=== PATIENT | female | born 1975 | race Caucasian/White ===

== ENCOUNTER 2016-10-11 16:06 | Emergency (ER) | payer OTHER ==
[2016-10-11 16:41] VITALS: BP 155/95
--- NOTE | 2016-10-11 17:22 | UC ---
Throat Pain/Nasal Cameron HPI - HPI Summary HPI Summary: complaint of cough and nasal congestion that started 3 days ago feels like he lymph nodes are swollen hearing some wheezing in her chest ears are slightly painful, intermittent headaches has felt chills for the last 2 days denies N/V/D has been taking throat spray and ibuprofen without relief - History of Current Complaint Chief Complaint: UCRespiratory Stated Complaint: COUGH-SOB Time Seen by Provider: 10/11/16 17:16 Hx Last Menstrual Period: tubal - Allergies/Home Medications Allergies/Adverse Reactions: Allergies Allergy/AdvReac Type Severity Reaction Status Date / Time No Known Allergies Allergy Verified 10/11/16 16:41 PMH/Surg Hx/FS Hx/Imm Hx Previously Healthy: Yes - Surgical History Surgical History: Yes Surgery Procedure, Year, and Place: 3 C-SECTIONS, APPENDECTOMY, CHOLECYSTECTOMY , LEFT BREAST TUMOR CYST REMOVED, LEFT OVARIAN TUMOR REMOVED - Family History Known Family History: Positive: Hypertension Negative: Cardiac Disease, Diabetes - Social History Occupation: Employed Full-time Lives: With Family Alcohol Use: Weekly Alcohol Amount: once a week Substance Use Type: None Smoking Status (MU): Light Every Day Tobacco Smoker Type: Cigarettes Amount Used/How Often: 1/2 ppd Length of Time of Smoking/Using Tobacco: 20 yrs Review of Systems Constitutional: Chills Skin: Negative Eyes: Negative ENT: Ear Ache, Nasal Discharge Respiratory: Cough Cardiovascular: Negative Gastrointestinal: Negative Genitourinary: Negative Motor: Negative Neurovascular: Negative Musculoskeletal: Negative Neurological: Negative Psychological: Negative All Other Systems Reviewed And Are Negative: Yes Physical Exam Triage Information Reviewed: Yes Appearance: No Pain Distress, Well-Nourished, Obese Vital Signs: Initial Vital Signs Temp 98.7 F 10/11/16 16:38 Pulse 82 10/11/16 16:38 Resp 22 10/11/16 16:38 BP 155/95 10/11/16 16:38 Pulse Ox 94 10/11/16 16:38 Vital Signs Reviewed: Yes Eyes: Positive: Conjunctiva Clear ENT: Positive: Pharyngeal erythema, Nasal congestion, Nasal drainage, TMs normal Neck: Positive: No Lymphadenopathy Respiratory: Positive: No respiratory distress, Rhonchi, Wheezing - rhonchi in BLL, wheezing throughout Cardiovascular: Positive: RRR, No Murmur Abdomen Description: Positive: Nontender, Soft, Distended Bowel Sounds: Positive: Present Musculoskeletal: Positive: No Edema Neurological: Positive: Alert Psychological Exam: Normal Skin Exam: Normal Re-Evaluation - Re-Evaluation First Eval Re-Evaluation Time: 05:50 Change: Improved Comment: lungs with less wheezing. still has rhonchi Throat Pain/Nasal Course/Dx - Course Course Of Treatment: exam completed. pt refuses chest xray. will treat for pneumonia with pcp followup. blood pressure is elevated -refer to PCP - Differential Dx/Diagnosis Differential Diagnosis/HQI/PQRI: URI, Other - bronchitis, pneumonia Provider Diagnoses: pneumonia Discharge - Discharge Plan Condition: Stable Disposition: HOME Prescriptions: Albuterol HFA INHALER* [Ventolin HFA Inhaler*] 2 puff INH Q4H PRN #1 mdi PRN Reason: Wheezing Azithromycin TAB* [Zithromax TAB (Z-WOOD)*] 0 mg PO .Z-WOOD INSTRUCTIONS #6 tab Spacer/Aerosol-Holding Chamber [Aerochamber Mv] 1 mis XX Q4HR #1 mis Patient Education Materials: Pneumonia (ED) Referrals: Porfirio Joy MD [Primary Care Provider] - Additional Instructions: Your blood pressure is elevated please contact your primary care provider for further evaluation Please take antibiotic as directed Use your albuterol inhaler every 4-6 hours when needed for wheezing, shortness of breath or uncontrolled coughing. Increase fluids and rest Take acetaminophen or ibuprofen for fever or pain Please review your discharge instructions. If your symptoms do not improve please call your primary care provider or return to urgent care.
[2016-10-11] MEDS ORDERED: Albuterol/Ipratropium NEB.SOL* Albuterol 2.5 MG/Ipratropium 0.5 MG 3 ML INH ONE (17:25)
== END 2016-10-11 17:58 | disposition home or self-care (01) ==
LOC: UCEAST 16:06
DX: J18.9 Pneumonia, unspecified organism (principal); F17.210 Nicotine dependence, cigarettes, uncomplicated
CPT/HCPCS: 94640; 99212; A9270-GY; G0463

== ENCOUNTER 2017-02-24 09:41 | Emergency (ER) | payer OTHER ==
[2017-02-24 10:01] VITALS: BP 157/99
--- NOTE | 2017-02-24 11:01 | UC ---
Respiratory Complaint HPI - HPI Summary HPI Summary: PATIENT PRESENTS TO WITH CC OF COUGH X 2 WEEKS, SOB, AND ORTHOPNEA X 1 WEEK. COUGH IS WITH SLIGHT PRODUCTION OF WHITE/GREEN PHLEGM. SHE ENDORSES POST-NASAL DRIP BUT DENIES DISCOMFORT OVER MAXILLARY AND FRONTAL SINUSES. DENIES EAR PAIN OR EYE PAIN. SHE STATES HER LYMPHNODES HAVE BEEN SWOLLEN. SYMPTOMS BEGAN 2 WEEKS AGO AND HAVE BEEN GETTING WORSE. SHE IS UNABLE TO PERFORM HER DAILY ACTIVITIES. DENIES HX OF ASTHMA, COPD OR OTHER ILLNESS. SHE IS SCHEDULED FOR A HYSTERECTOMY IN 2 MONTHS AND IS CURRENTLY ON LUPRON BUT DENIES OTHER MEDICATIONS. SYMPTOMS ARE WORSE IN RECUMBENT POSITION, BETTER IN ORTHOSTATIC POSITION. - History of Current Complaint Chief Complaint: UCRespiratory Stated Complaint: TROUBLE BREATHING,SOUGH Time Seen by Provider: 02/24/17 10:21 Hx Obtained From: Patient Hx Last Menstrual Period: tubal ?: No Onset/Duration: Gradual Onset Timing: Constant Severity Initially: Moderate Severity Currently: Moderate Pain Intensity: 4 Character: Cough: Productive Aggravating Factors: Deep Breaths, Recumbent Position Alleviating Factors: Upright Position Associated Signs And Symptoms: Positive: Dyspnea, URI, Nasal Congestion - Risk Factors Pulmonary Embolism Risk Factors: Estrogen Cardiac Risk Factors: Negative Pseudomonas Risk Factors: Negative Tuberculosis Risk Factors: Negative - Allergies/Home Medications Allergies/Adverse Reactions: Allergies Allergy/AdvReac Type Severity Reaction Status Date / Time No Known Allergies Allergy Verified 01/08/17 10:22 Home Medications: Home Medications Ascorbic Acid [Vitamin C] 500 mg PO 02/24/17 [History] Ferrous Sulfate [Iron (Ferrous Sulfate)] 100 mg 02/24/17 [History] Leuprolide Acetate (Cpp) [Lupron Depot-Ped] 3.75 mg IM 02/24/17 [History] PMH/Surg Hx/FS Hx/Imm Hx Previously Healthy: Yes - Surgical History Surgical History: Yes Surgery Procedure, Year, and Place: 3 C-SECTIONS, APPENDECTOMY, CHOLECYSTECTOMY , LEFT BREAST TUMOR CYST REMOVED, LEFT OVARIAN TUMOR REMOVED - Family History Known Family History: Positive: Hypertension Negative: Cardiac Disease, Diabetes - Social History Alcohol Use: Weekly Alcohol Amount: once a week Substance Use Type: None Smoking Status (MU): Light Every Day Tobacco Smoker Type: Cigarettes Amount Used/How Often: 1/2 ppd Length of Time of Smoking/Using Tobacco: 20 yrs Review of Systems Constitutional: Negative Skin: Negative ENT: Nasal Discharge Respiratory: Shortness Of Breath, Cough Gastrointestinal: Negative Motor: Negative Musculoskeletal: Negative Neurological: Negative Psychological: Negative All Other Systems Reviewed And Are Negative: Yes Physical Exam Triage Information Reviewed: Yes Appearance: Well-Appearing, Well-Nourished Vital Signs: Initial Vital Signs Temp 98.8 F 02/24/17 09:56 Pulse 76 02/24/17 09:56 Resp 18 02/24/17 09:56 BP 157/99 02/24/17 09:56 Pulse Ox 99 02/24/17 09:56 Vital Signs Reviewed: Yes Eye Exam: Normal Eyes: Positive: Conjunctiva Clear ENT: Positive: Pharynx normal, Nasal congestion, Nasal drainage Dental Exam: Normal Neck exam: Normal Neck: Positive: Supple, Nontender, No Lymphadenopathy Respiratory: Positive: Chest non-tender, Lungs clear, Decreased breath sounds Cardiovascular Exam: Normal Cardiovascular: Positive: RRR Musculoskeletal Exam: Normal Musculoskeletal: Positive: Strength Intact, ROM Intact Neurological Exam: Normal Neurological: Positive: Alert, Muscle Tone Normal Psychological Exam: Normal Psychological: Positive: Normal Response To Family Skin Exam: Normal UC Diagnostic Evaluation - Laboratory O2 Sat by Pulse Oximetry: 99 Respiratory Course/Dx - Course Course Of Treatment: PATIENT SENT TO XRAY. X RAY NEGATIVE. GIVEN ALBUTEROL INHALER AND 5 DAY COURSE OF PREDNISONE. ENCOURAGED TO USE ROBITUSSIN WITH CODEINE ONLY AT NIGHT FOR COUGH AND RETURN IF SYMPTOMS BECOME WORSE. SHE AGREES TO FOLLOW UP WITH PCP THIS WEEK. - Differential Dx/Diagnosis Differential Diagnosis/HQI/PQRI: Asthma, Bronchitis, Lower Resp Infection Provider Diagnoses: COUGH WITH SHORTNESS OF BREATH Discharge - Discharge Plan Condition: Stable Disposition: HOME Prescriptions: Albuterol HFA INHALER* [Ventolin HFA Inhaler*] 1 puff INH Q4H PRN #1 mdi PRN Reason: Cough guaiFENesin/CODIEN 100MG-10MG* [Robitussin AC 100Mg-10Mg*] 10 ml PO Q4H PRN # 100 udc MDD 10ml PRN Reason: Cough predniSONE TAB* [Deltasone TAB*] 50 mg PO DAILY #5 tab MDD 1 Patient Education Materials: Dyspnea (ED) Referrals: Porfirio Joy MD [Primary Care Provider] - Additional Instructions: Albuterol inhaler as needed for cough and shortness of breath Prednisone daily in the morning for 5 days Robitussin with codeine - 2 teaspoons at bedtime.
--- NOTE | 2017-02-24 12:10 | RAD ---
HISTORY: Cough COMPARISONS: None relevant VIEWS: 2: Frontal dual-energy and lateral views of the chest. FINDINGS: CARDIOMEDIASTINAL SILHOUETTE: The cardiomediastinal silhouette is normal. COLETTE: The colette are normal. PLEURA: The costophrenic angles are sharp. No pleural abnormalities are noted. LUNG PARENCHYMA: The lungs are clear. ABDOMEN: The upper abdomen is clear. There is no subphrenic gas. BONES AND SOFT TISSUES: Degenerative changes are noted along the spine. OTHER: None. IMPRESSION: NO ACTIVE CARDIOPULMONARY DISEASE.
== END 2017-02-24 12:12 | disposition home or self-care (01) ==
LOC: UCEAST 09:41
DX: R05 Cough (principal); R06.02 Shortness of breath; F17.210 Nicotine dependence, cigarettes, uncomplicated
CPT/HCPCS: 71020; 99212; G0463

== ENCOUNTER 2017-02-28 15:19 | Emergency (ER) | payer OTHER ==
[2017-02-28 15:36] VITALS: BP 131/91
--- NOTE | 2017-02-28 15:56 | UC ---
Respiratory Complaint HPI - HPI Summary HPI Summary: TWO WEEKS OF COUGH CONGESTION RUNNY NOSE, SEEN TWO DAYS AGO, PUT ON PREDNISONE AND ALBUITEROL INHALER. GIVEN COUGH SYRUP WITH CODEINE FOR COUGH. NO IMPROVEMENT. COUGH CONTINUES. - History of Current Complaint Chief Complaint: UCRespiratory Stated Complaint: RECHECK COUGH Time Seen by Provider: 02/28/17 15:38 Hx Obtained From: Patient Hx Last Menstrual Period: 3 MONTHS AGO, PT IS ON MEDICATION LUPRON Onset/Duration: Gradual Onset, Lasting Weeks, Still Present Timing: Intermittent Episodes Severity Initially: Moderate Severity Currently: Moderate Character: Cough: Nonproductive Associated Signs And Symptoms: Positive: URI, Nasal Congestion, Hoarseness, Sinus Discomfort. Negative: Fever, Chills, Calf Pain, Calf Swelling - Risk Factors Pulmonary Embolism Risk Factors: Negative Cardiac Risk Factors: Negative Pseudomonas Risk Factors: Negative Tuberculosis Risk Factors: Negative - Allergies/Home Medications Allergies/Adverse Reactions: Allergies Allergy/AdvReac Type Severity Reaction Status Date / Time No Known Allergies Allergy Verified 02/28/17 15:24 PMH/Surg Hx/FS Hx/Imm Hx Previously Healthy: Yes Respiratory History Of: Reports: Bronchitis - Surgical History Surgical History: Yes Surgery Procedure, Year, and Place: 3 C-SECTIONS, APPENDECTOMY, CHOLECYSTECTOMY , LEFT BREAST TUMOR CYST REMOVED, LEFT OVARIAN TUMOR REMOVED - Family History Known Family History: Positive: Hypertension Negative: Cardiac Disease, Diabetes - Social History Occupation: Employed Full-time Lives: With Family Alcohol Use: Weekly Alcohol Amount: once a week Substance Use Type: None Smoking Status (MU): Light Every Day Tobacco Smoker Type: Cigarettes Amount Used/How Often: 1/2 ppd Length of Time of Smoking/Using Tobacco: 20 yrs Review of Systems Constitutional: Negative Skin: Negative Eyes: Negative ENT: Nasal Discharge Respiratory: Cough Cardiovascular: Negative Gastrointestinal: Negative Genitourinary: Negative Motor: Negative Neurovascular: Negative Musculoskeletal: Negative Neurological: Negative Psychological: Negative All Other Systems Reviewed And Are Negative: Yes Physical Exam Triage Information Reviewed: Yes Appearance: Well-Appearing, No Pain Distress, Well-Nourished Vital Signs: Initial Vital Signs Temp 98.7 F 02/28/17 15:28 Pulse 89 02/28/17 15:28 Resp 24 02/28/17 15:28 BP 131/91 02/28/17 15:28 Pulse Ox 97 02/28/17 15:28 Vital Signs Reviewed: Yes Eye Exam: Normal ENT: Positive: Hearing grossly normal, Pharynx normal, Nasal congestion, TM bulging, TM dull Dental Exam: Normal Neck exam: Normal Neck: Positive: Supple, Nontender, No Lymphadenopathy Respiratory Exam: Other - COUGH Respiratory: Positive: Chest non-tender, Lungs clear, Normal breath sounds, No respiratory distress Cardiovascular Exam: Normal Cardiovascular: Positive: RRR, No Murmur, Pulses Normal Abdominal Exam: Normal Musculoskeletal Exam: Normal Musculoskeletal: Positive: Strength Intact, ROM Intact Neurological Exam: Normal Psychological Exam: Normal Skin Exam: Normal UC Diagnostic Evaluation - Laboratory O2 Sat by Pulse Oximetry: 97 Respiratory Course/Dx - Differential Dx/Diagnosis Differential Diagnosis/HQI/PQRI: Sinusitis Provider Diagnoses: SINUSITIS; BRONCHITIS Discharge - Discharge Plan Condition: Stable Disposition: HOME Prescriptions: Azithromycin TAB* [Zithromax TAB (Z-WOOD) 250 mg #6 tabs] 250 mg PO DAILY #6 tab Benzonatate CAP* [Tessalon 100 MG CAP*] 100 mg PO TID #15 cap Patient Education Materials: Sinusitis (ED), Acute Bronchitis (ED) Referrals: Porfirio Joy MD [Primary Care Provider] -
== END 2017-02-28 15:57 | disposition home or self-care (01) ==
LOC: UCCORT 15:19
DX: J32.9 Chronic sinusitis, unspecified (principal); J40 Bronchitis, not specified as acute or chronic; Z90.49 Acquired absence of other specified parts of digestive tract; F17.210 Nicotine dependence, cigarettes, uncomplicated
CPT/HCPCS: 99212; G0463

== ENCOUNTER 2017-04-19 06:21 | Observation (INO) | payer OTHER ==
[~2017-04-19 06:21] MED LIST: Buffered Lidocaine 0.9% SYRIN* 5 ML/SYR SYRINGE INTRADERM ONE; Famotidine TAB* 20 MG PO ONE; Ibuprofen TAB* 400 MG PO ONE; Metoclopramide TAB* 10 MG PO ONE; Scopolamine 1.5 mg* PATCH TRANSDERM ONE; Sodium Citrate/Citric Acid* 15 ML UDC PO ONE
[2017-04-19] MEDS ORDERED: ceFOXitin 2 GM IVPREMIX* 2 GM/50 ML BAG ONE (06:23)
[2017-04-19] MEDS ORDERED: Scopolamine 1.5 mg* PATCH ONE (06:23)
[2017-04-19] MEDS ORDERED: Buffered Lidocaine 0.9% SYRIN* 5 ML/SYR SYRINGE ONE (06:23)
[2017-04-19] MEDS ORDERED: Sodium Citrate/Citric Acid* 15 ML UDC ONE (06:23)
[2017-04-19] MEDS ORDERED: Famotidine TAB* 20 MG ONE (06:23)
[2017-04-19] MEDS ORDERED: Ibuprofen TAB* 400 MG ONE (06:23)
[2017-04-19] MEDS ORDERED: Metoclopramide TAB* 10 MG ONE ×2 (06:23→07:26)
[2017-04-19] MEDS ORDERED: Dexamethasone IV* 4 MG/ML 1 ML (4 MG) ONE (07:31)
[2017-04-19] MEDS ORDERED: Lidocaine 2% PF * 5 ML VIAL ONE (07:31)
[2017-04-19] MEDS ORDERED: Propofol* 10 MG/ML 20 ML BTL IV PUSH ONE (07:31)
[2017-04-19] MEDS ORDERED: Ondansetron INJ* 2 MG/ML VIAL ONE (07:31)
[2017-04-19] MEDS ORDERED: Bupivacaine 0.25% SDV* 30 ML ONE (07:38)
[2017-04-19 07:45] LABS: Comments Flag Yes; Hematocrit 41 % (35-47); Hemoglobin 13.1 g/dl (12.0-16.0); Mean Corpuscular HGB Conc 32 g/dl (31-36); Mean Corpuscular Hemoglobin 28 pg (27-31); Mean Corpuscular Volume 86 fL (80-97); Mean Platelet Volume 10 um3 (7.4-10.4); Red Blood Count 4.78 10^6/ul (4.0-5.4); Red Cell Distribution Width 15 % (10.5-15); White Blood Count 7.8 10^3/ul (3.5-10.8)
[2017-04-19] MEDS ORDERED: fentaNYL* 50 MCG/ML 2 ML VIAL (100 MCG VIAL) ONE (07:49)
[2017-04-19] MEDS ORDERED: Midazolam* 1 MG/ML 2 ML VIAL (2 MG) ONE (07:50)
[2017-04-19] MEDS ORDERED: Atracurium* 10 MG/ML 10 ML VIAL ONE (07:58)
[2017-04-19] MEDS ORDERED: fentaNYL* 50 MCG/ML 5 ML VIAL (250 MCG VIAL) ONE (08:49)
[2017-04-19] MEDS ORDERED: fentaNYL* 50 MCG/ML 2 ML VIAL (100 MCG VIAL) IV PRN (09:31)
[2017-04-19] MEDS ORDERED: DiMENhydriNATE IV* 50 MG/ML VIAL IV PUSH PRN (09:31)
[2017-04-19] MEDS ORDERED: HYDROmorphone* 1 MG/ML 1 ML SYR IV PRN (09:31)
[2017-04-19] MEDS ORDERED: Edrophonium Chloride* 10 MG/ML 15 ML VIAL ONE (10:50)
[2017-04-19] MEDS ORDERED: Atropine 1MG/ML INJ* 1 ML VIAL ONE (10:50)
[2017-04-19] MEDS ORDERED: Simethicone CHEW TAB* 80 MG PO PRN (11:17)
[2017-04-19] MEDS ORDERED: oxyCODONE/Acetamin 5/325 MG* TAB PO PRN (11:17)
[2017-04-19] MEDS ORDERED: Ondansetron INJ* 2 MG/ML VIAL IV PRN (11:24)
[2017-04-19] MEDS: Docusate CAP* 100 MG PO SCH ×2 (14:03→22:07)
[2017-04-19] MEDS: oxyCODONE/Acetamin 5/325 MG* TAB PO PRN ×2 (15:17→19:24)
[2017-04-19] MEDS: Ketorolac INJ* 30 MG/ML 1 ML VIAL IV PUSH SCH ×2 (15:54→22:08)
[2017-04-20 06:00] LABS: Hematocrit 39 % (35-47); Mean Corpuscular HGB Conc 31 g/dl (31-36); Mean Corpuscular Hemoglobin 27 pg (27-31); Mean Corpuscular Volume 88 fL (80-97); Mean Platelet Volume 9 um3 (7.4-10.4); Red Cell Distribution Width 16 % (10.5-15)
[2017-04-20] MEDS: Ibuprofen TAB* 600 MG PO SCH ×2 (06:03→11:37)
[2017-04-20 06:11] LABS: Add Diff/Slide Review? Slide Review Added; Comments Flag Yes
[2017-04-20 07:47] VITALS: BP 96/57
[2017-04-20] MEDS: Docusate CAP* 100 MG PO SCH (09:13)
--- NOTE | 2017-04-20 11:36 | OP ---
DATE OF OPERATION: 04/19/17 - ROOM #332 DATE OF : 71 SURGEON: Jessie Pfeiffer MD DESK MONITOR: Dr. Perdue. ANESTHESIOLOGIST: Dr. Hinson. ANESTHESIA: General endotracheal. PRE-OP DIAGNOSES: Severe menorrhagia, enlarged fibroid uterus, and morbid obesity. POST-OP DIAGNOSES: Severe menorrhagia, enlarged fibroid uterus, and morbid obesity. OPERATIVE PROCEDURE: Laparoscopic supracervical hysterectomy and bilateral salpingectomy. ESTIMATED BLOOD LOSS: 150 cc. URINE OUTPUT: 250 cc. IV FLUIDS: 2200 cc Lactated Ringer's. MATERIALS TO LAB: Uterus and bilateral fallopian tubes. INDICATIONS: This patient was a 41-year-old 3, para 3, who presented with severely heavy menstrual periods several months ago. Ultrasound was notable for a significantly enlarged fibroid uterus with the largest fibroid about 10 cm in size. The patient strongly desired to proceed with a hysterectomy ; however, when we prepared her for the initial surgery, her hematocrit was found to be only 24. Considering the increased risk with severe anemia going into surgery, we made a decision to postpone the surgery for several months and to give monthly Lupron to help the patient stop bleeding, resolve her anemia and also decrease the size of her uterus preoperatively. In less than 3 months , the patient's hematocrit was up to 41 and she was not bleeding at all. Ultrasound at her preoperative exam was notable for a uterus that was substantially smaller in size as well. She was extensively counseled for the hysterectomy and consent was signed. FINDINGS: Bulbous and enlarged uterus with multiple fibroids. Only minor scar tissue from the prior sections. Both ovaries appeared normal. Both tubes had been previously ligated and there was no other abnormality in the pelvis. COMPLICATIONS: None. DESCRIPTION OF PROCEDURE: The risks, benefits, and alternatives were described to the patient and informed consent was obtained. The patient was taken to the operating room with IV running where general anesthesia was induced and found to be adequate. The patient was prepped and draped in the normal sterile fashion in a low lithotomy position in [facility]. A time-out was performed. A Garay catheter was placed. A bivalved speculum was placed in the vagina and a ClearView uterine manipulator was placed through the cervix into the uterine cavity for manipulation. This was done with the assistance of a tenaculum on the cervix. The tenaculum was then removed and the speculum was also taken out. Attention was then turned to the abdomen and gloves were changed. Penetrating towel clamps were placed on either side of the umbilicus for elevating the skin. 0.25% Marcaine was injected into the umbilicus and a 5 mm incision was made with the scalpel in the umbilicus. While elevating the abdominal skin, an extra long 15-cm bladeless 5-mm trocar was placed through the umbilical incision and into the peritoneal cavity without difficulty. The abdomen was then insufflated with carbon dioxide gas to a maximum pressure of 15 mmHg. The area below the trocar insertion site was carefully inspected and there was no evidence of trauma or bleeding. The towel clamps were removed from the skin. The patient was placed in the Trendelenburg position. On brief evaluation, it appeared that the uterus was fairly clean and laparoscopic hysterectomy was reasonable. 0.25% Marcaine was then injected into the right and left sides about 6 cm lateral to the umbilicus on both sides. 5-mm incisions were made on both sides and then a 5-mm bladeless trocars were placed into the peritoneal cavity on both sides. The bowel was swept out of the abdomen using blunt graspers. The pelvis was carefully inspected with the findings noted above. The patient's right round ligament was then grasped a couple of centimeters from the uterus, then coagulated and transected using the ligature. The anterior broad ligament was then taken down in a similar fashion. Extending this to the lower uterine segment. A bladder flap was then created also using the ligature, posterior broad ligament was dissected and then the lateral uterine vessels were skeletonized and coagulated using the ligature. There was excellent hemostasis present. The same was then performed on the patient's right side, again with very good hemostasis and with good coagulation of the uterine vessels. At that time, the uterus was getting very boggy and turning purplish, which was evidence that the vascular supply had been compromised. A SupraLoop was then prepared. A 0.25% Marcaine was then injected in the midline about 2 cm above the pubic symphysis. A 5-mm incision was made with the scalpel in the patient's prior scar. A 5-mm trocar was then inserted into the peritoneal cavity again without difficulty. The SupraLoop was placed through the suprapubic trocar and with the assistance of a tenaculum for manipulation of the uterus, the SupraLoop was looped over the fundus and tightened down at the upper cervix. Care was taken to ensure that the loop was free from all surrounding structures and was well away from the posterior bowel. Once it all appeared to be in place and safe, the SupraLoop was activated with 110 pure cut current. This was done after removal of the uterine manipulator. The loop successfully amputated the uterus from the upper cervix. The loop was removed. The uterus was moved out of the way and there was only slight bleeding from the surface of the cervix. This was coagulated using a touch from the ligature. The patient's left fallopian tube was then grasped at the connection to the left ovary. The ligature was then used to transect the mesosalpinx and the remaining fallopian tube segment was excised and taken out through the trocar site. Same was performed on the right side. All of the fimbriated fallopian tube was removed. A small fraction of fallopian tube was very adherent to the ovary and was left in place. The suprapubic trocar was then removed. This incision was then extended to about 5 cm using a scalpel after injection of additional Marcaine. The subcutaneous tissues were dissected bluntly. The fascia was then grasped with a Desiree clamp and elevated. An incision was made and this was extended laterally using Nguyen scissors. The peritoneum was then pushed in using a gloved finger and laparoscopically a [place] with monopolar energy was used to make a small incision into the peritoneum. The peritoneal incision was then extended with blunt traction. A small Venkat retractor was then prepared. The flexible ring was placed through the incision and into the peritoneal cavity and then the outer portion was tightened down by rolling it in. Two attempts were made to place a collection bag into the peritoneal cavity and collect the uterus but we were unsuccessful due to the patient's significant obesity and the poor visualization due to the very deep suprapubic incision. After 2 attempts that were unsuccessful, decision was made to morcellate the uterus through the incision without being inside of a bag. The uterus was grasped with a Radha clamp and a 10-blade scalpel and Nguyen scissors were used to gradually morcellate the uterus, taking care to avoid spillage of any uterine fragments. The entire uterus was removed in one large segment. At this time, the Venkat retractor was removed. The fascia was reapproximated using 0 Polysorb in a running stitch. The subcutaneous tissues were reapproximated using 0 Polysorb in 2 interrupted sutures. The suprapubic skin was closed with 4-0 Monocryl in a subcuticular stitch and then these were overlaid with Mastisol and Steri-Strips. The abdomen was re-insufflated and the pelvis was reinspected. Only a small amount of bleeding was present near the left adnexal pedicle and this was easily coagulated using the ligature. The pelvis was irrigated with saline. The patient was then placed in a flat position. The gas was allowed to escape completely from the abdomen and all 3 of the trocars were removed. The right and left incisions were reapproximated with 4-0 Monocryl in a subcuticular stitch and then DermaFlex skin adhesive was used on all 3 incisions. The patient was then returned to the supine position. She was allowed to awaken. She tolerated the procedure well. Sponge, lap and needle counts were correct x2. [id number]/[facility] #: [id number] MTDD
--- NOTE | 2017-04-20 14:41 | DS ---
DISCHARGE SUMMARY: DATE OF ADMISSION: 04/19/17 DATE OF DISCHARGE: 04/20/17 HOSPITAL COURSE: This patient was a 41-year-old 3, para 3, who presented on the day of admission for her scheduled surgery. She underwent an uncomplicated laparoscopic supracervical hysterectomy and bilateral salpingectomy for an enlarged fibroid uterus and severe menorrhagia. The procedure went very well and estimated blood loss was 150 cc. After a brief stay in the recovery area, she was transferred to the [facility] for her postoperative care. The patient had an uncomplicated postoperative stay. On postoperative day #1, the patient was ambulating and tolerating a regular diet, voiding spontaneously and having good pain control with her oral pain medications. The patient had no significant complaints and she was discharged to home in good condition on postoperative day #1. DISCHARGE PHYSICAL EXAMINATION: Vital Signs: Temperature 98.1, pulse 57, respiratory rate 16, blood pressure 96/57. General: The patient in no acute distress, ambulating in her room. Chest: Clear to auscultation bilaterally. Abdomen: Soft, minimal tenderness to palpation. Laparoscopic incisions are clean, dry and covered with skinny glue. Suprapubic incision with Steri-Strips in place and intact. LABORATORY DATA: Preoperative hematocrit 41 and postoperative hematocrit 39. DISCHARGE INSTRUCTIONS: The patient was provided with verbal and written instructions. Please see the patient's chart. DISCHARGE MEDICATIONS: Please see the medication reconciliation form. DISCHARGE DIAGNOSES: 1. Enlarged fibroid uterus with severe menorrhagia. 2. Morbid obesity. PROCEDURE PERFORMED: Laparoscopic supracervical hysterectomy and bilateral salpingectomy. [id number]/[facility] #: [id number] LYNDA
[2017-04-22] MEDS ORDERED: Scopolomine PATCH Remove* 1 NOTE MISC PATCH OFF ONE (06:00)
== END 2017-04-20 11:50 | disposition home or self-care (01) ==
LOC: OR 06:21 → INTOOBSV 13:16 → SSU 13:16
PROVIDERS: ADMIT Obstetrics & Gynecology; ATTEND Obstetrics & Gynecology
PROC: 0UT74ZZ Resection of Bilateral Fallopian Tubes, Percutaneous Endoscopic Approach (ICD-10-PCS; 2017-04-19)
PROC: 0UT94ZZ Resection of Uterus, Percutaneous Endoscopic Approach (ICD-10-PCS; principal; 2017-04-19 07:45)
DX: D25.9 Leiomyoma of uterus, unspecified (principal); N92.0 Excessive and frequent menstruation with regular cycle; E66.01 Morbid (severe) obesity due to excess calories
CPT/HCPCS: 36415; 85025; 85027; 86850; 86900; 86901; 88307; 96374; 96375; A9270-GY; G0378; J0461; J0694; J1100; J1885; J2250; J2405; J2704; J3010

== ENCOUNTER 2017-10-05 15:24 | Emergency (ER) | payer OTHER ==
[2017-10-05] MEDS ORDERED: Ondansetron INJ* 2 MG/ML VIAL IV ONE (16:10)
[2017-10-05] MEDS ORDERED: Morphine INJ* 4 MG/ML 1 ML CARPUJECT IV ONE (16:10)
[2017-10-05 16:52] LABS: Hematocrit 39 % (35-47); Hemoglobin 12.9 g/dl (12.0-16.0); Mean Corpuscular HGB Conc 33 g/dl (31-36); Mean Corpuscular Hemoglobin 29 pg (27-31); Mean Corpuscular Volume 89 fL (80-97); Mean Platelet Volume 9 um3 (7.4-10.4); Platelet Count 302 10^3/ul (150-450); Red Cell Distribution Width 13 % (10.5-15); White Blood Count 6.5 10^3/ul (3.5-10.8)
[2017-10-05 17:02] LABS: INR 0.91 (0.77-1.02)
[2017-10-05 17:06] LABS: EGFR Non-African American 97.7 (>60)
--- NOTE | 2017-10-05 17:16 | RAD ---
INDICATION: Left leg swelling. COMPARISON: There are no prior studies available for comparison. TECHNIQUE: Multiple real-time, color flow and Doppler tracings of the left lower extremity were obtained. FINDINGS: The common femoral, femoral, profunda femoral and popliteal veins all demonstrate normal compressibility, augmentation with compression and phasic response with respiration. The posterior tibial and peroneal veins demonstrate normal compressibility and augmentation with compression. IMPRESSION: NO EVIDENCE FOR DEEP VENOUS THROMBOSIS.
--- NOTE | 2017-10-05 18:22 | RAD ---
INDICATION: Left knee injury. TECHNIQUE: 4 views of the left knee were obtained. FINDINGS: The bones are in normal alignment. No joint effusion or fracture is seen. Joint spaces appear maintained. IMPRESSION: NO EVIDENCE FOR FRACTURE.
[2017-10-05] MEDS ORDERED: traMADol TAB* 50 MG PO ONE (18:26)
[2017-10-05 19:23] VITALS: BP 132/76
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
== END 2017-10-05 19:22 | disposition home or self-care (01) ==
LOC: ED 15:24
DX: S80.02XA Contusion of left knee, initial encounter (principal); M25.562 Pain in left knee; R06.02 Shortness of breath; F17.210 Nicotine dependence, cigarettes, uncomplicated; V49.9XXA Car occupant (driver) (passenger) injured in unspecified traffic accident, initial encounter; Y92.9 Unspecified place or not applicable
CPT/HCPCS: 36415; 80053; 85027; 85610; 85730; 99283; A9270-GY; J2270; J2405

== ENCOUNTER 2018-08-10 14:44 | Emergency (ER) | payer OTHER ==
[2018-08-10] MEDS ORDERED: Ondansetron ODT TAB* 4 MG ONE (14:48)
[2018-08-10] MEDS ORDERED: Albuterol 2.5 MG/3 ML NEB.SOL* (0.083%) INH ONE (14:48)
--- NOTE | 2018-08-10 15:04 | ED ---
Shortness of Breath - HPI Summary HPI Summary: 42 yo WF h/o HTN and COPD (smoker) presents with dizziness, SOB and chest tightness since yesterday, associated with cough and inability to bring up sputum. Denies h/o asthma but is a smoker (socially) and just felt progressively more SOB - History of Current Complaint Chief Complaint: UCRespiratory Time Seen by Provider: 08/10/18 14:44 Hx Obtained From: Patient Current Severity: Severe Aggrevating Factors: Deep Breaths, Recumbent Position Alleviating Factors: Oxygen Associated Signs & Symptoms: Cough (Nonproductive), Diaphoresis - Allergy/Home Medications Allergies/Adverse Reactions: Allergies Allergy/AdvReac Type Severity Reaction Status Date / Time No Known Allergies Allergy Verified 10/05/17 15:37 Home Medications: Home Medications Losartan Potassium 25 mg PO DAILY 08/10/18 [History Confirmed 08/10/18] PMH/Surg Hx/FS Hx/Imm Hx Previously Healthy: No - Aortic anuerysm, COPD Endocrine/Hematology History: Reports: 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 Cardiovascular History: Reports: Hx Aneurysm - Aortic, Hx Hypertension - infrequent, no meds Denies: Other Cardiovascular Problems/Disorders Respiratory History: Denies: Other Respiratory Problems/Disorders GI History: Denies: Other GI Disorders Musculoskeletal History: Reports: Hx Arthritis - right knee Sensory History: Denies: Hx Contacts or Glasses, Hx Hearing Aid Opthamlomology History: Denies: Hx Contacts or Glasses Neurological History: Denies: Other Neuro Impairments/Disorders - Surgical History Surgery Procedure, Year, and Place: 3 C-SECTIONS,1991, 1995, [place] [facility] [place]ASTcyst excision OVARIAN TUMOR REMOVED, 2012, [facility]. tubal ligation Hx Anesthesia Reactions: Yes - 1996, diff breathing post op Infectious Disease History: No Infectious Disease History: Denies: Hx Clostridium Difficile, Hx Hepatitis, Hx Human Immunodeficiency Virus (HIV), Hx of Known/Suspected MRSA, Hx Shingles, Hx Tuberculosis, Hx Known/ Suspected VRE, Hx Known/Suspected VRSA, History Other Infectious Disease, Traveled Outside the in Last 30 Days - Family History Known Family History: Positive: Hypertension Negative: Cardiac Disease, Diabetes - Social History Alcohol Use: Weekly Alcohol Amount: 3 per week Substance Use Type: Reports: None Smoking Status (MU): Light Every Day Tobacco Smoker Type: Cigarettes Amount Used/How Often: 1/2 ppd for28 years Length of Time of Smoking/Using Tobacco: 20 yrs Have You Smoked in the Last Year: Yes Review of Systems Positive: Fatigue Eyes: Negative ENT: Negative Cardiovascular: Negative Positive: Palpitations Positive: Shortness Of Breath, Cough Gastrointestinal: Negative Genitourinary: Negative Musculoskeletal: Negative Skin: Negative Neurological: Negative All Other Systems Reviewed And Are Negative: Yes Physical Exam - Summary Physical Exam Summary: Vital Signs Reviewed: Yes Appearance: Positive: Obese Skin: Positive: Warm, diaphoretic Head/Face: Positive: Normal Head/Face Inspection Eyes: Positive: EOMI, MARIBETH ENT: Positive: Hearing grossly normal Neck: Positive: Supple, No Lymphadenopathy Respiratory/Lung Sounds: Positive: decreased BS B/L, tachypneic, trying to expel mucus Cardiovascular: Positive: tachycardic, @104 Abdomen Description: Positive: Nontender, Soft Bowel Sounds: Positive: Present Musculoskeletal: Positive: Normal Neurological: Positive: CN Intact II-III Psychiatric:Positive: Normal Triage Information Reviewed: Yes Vital Signs On Initial Exam: Initial Vitals Temp Pulse Resp BP Pulse Ox 37.1 C 118 24 202/110 88 08/10/18 14:45 08/10/18 14:45 08/10/18 14:45 08/10/18 14:45 08/10/18 14:45 Vital Signs Reviewed: Yes Diagnostics - Vital Signs Vital Signs Temp Pulse Resp BP Pulse Ox 08/10/18 14:45 37.1 C 118 24 202/110 88 - Laboratory Lab Statement: Any lab studies that have been ordered have been reviewed, and results considered in the medical decision making process. Course/Dx - Course Course Of Treatment: Pt was brought to room 4, RA was noted to be low 90's in O2 sat. 6L O2 via nasal cannula was applied, O2 sat came up to only 94%, then switched over to NRB- and O2 sat came up to 98% concurrently while receiving albuterol neb tx, lung sounds more wheezy post albuterol tx Assessment/Plan: Acute respiratory distress- may be secondary to acute infectious process eg PNA with COPD/asthma exacerbation vs PE vs cardiac etiology though EKG was neg for acute STT changes. Called ambulance for transfer to [facility], informed ED attending Dr Espinoza. - Diagnoses Provider Diagnoses: Respiratory distress, acute, SOB (shortness of breath) Discharge - Sign-Out/Discharge Documenting (check all that apply): Patient Departure All imaging exams completed and their final reports reviewed: No Studies - Discharge Plan Condition: Fair Disposition: TRANS HIGHER LVL OF CARE FAC Referrals: Porfirio Joy MD [Medical Doctor] - - Billing Disposition and Condition Condition: FAIR Disposition: Trans Higher Lvl of Care Fac
[2018-08-10] MEDS ORDERED: methylPREDNISolone 125 MG* 2 ML VIAL IV ONE (15:06)
[2018-08-10] MEDS ORDERED: Albuterol 0.5% CONC NEB.SOL* 5 MG/ML 20 ml BOT INH ONE (15:08)
[2018-08-10] MEDS ORDERED: Ondansetron ODT TAB* 4 MG PO ONE (15:08)
[2018-08-10 15:29] VITALS: BP 138/90
== END 2018-08-10 15:15 | disposition short-term general hospital (02) ==
LOC: UCEAST 14:44
DX: R06.03 Acute respiratory distress (principal); R06.02 Shortness of breath; I10 Essential (primary) hypertension; J44.9 Chronic obstructive pulmonary disease, unspecified; R42 Dizziness and giddiness; R61 Generalized hyperhidrosis; F17.210 Nicotine dependence, cigarettes, uncomplicated
CPT/HCPCS: 93005; 99214; A9270-GY; G0463; J7611

== ENCOUNTER 2018-08-10 15:50 | Observation (INO) | payer OTHER ==
[2018-08-10] MEDS ORDERED: Ketorolac INJ* 30 MG/ML 1 ML VIAL IV PUSH ONE (16:09)
[2018-08-10] MEDS ORDERED: NS 0.9% 1000 ML* 1,000 ML IV ONE (16:09)
[2018-08-10] MEDS ORDERED: Albuterol/Ipratropium NEB.SOL* Albuterol 2.5 MG/Ipratropium 0.5 MG 3 ML INH ONE ×2 (16:09→17:43)
[2018-08-10] MEDS ORDERED: methylPREDNISolone 125 MG* 2 ML VIAL IV ONE (16:10)
--- NOTE | 2018-08-10 16:23 | ED ---
Shortness of Breath - HPI Summary HPI Summary: This patient is a 42 year old F BIBA to [facility] with a chief complaint of cough that began yesterday. The patient rates the pain 5/10 in severity. Symptoms aggravated by movement. Symptoms alleviated by nothing. Patient reports SOB, wheezingb and chest discomfort. Patient denies fever, nasal discharge, sore throat, nasal congestion, and bilateral lower extremity edema. Patient denies sick contacts at home. Patient is on 4 L of O2 with an O2 sat of 94. - History of Current Complaint Chief Complaint: EDShortnessOfBreath Time Seen by Provider: 08/10/18 16:04 Hx Obtained From: Patient Onset/Duration: Sudden Onset, Lasting Days, Still Present Timing: Constant Current Severity: Moderate Dyspnea At: Rest Aggrevating Factors: Movement Alleviating Factors: Nothing Associated Signs & Symptoms: Cough (Nonproductive) - Allergy/Home Medications Allergies/Adverse Reactions: Allergies Allergy/AdvReac Type Severity Reaction Status Date / Time No Known Allergies Allergy Verified 08/10/18 16:02 PMH/Surg Hx/FS Hx/Imm Hx Previously Healthy: No Endocrine/Hematology History: Reports: 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 Cardiovascular History: Reports: Hx Aneurysm - Aortic, Hx Hypertension - infrequent, no meds Denies: Other Cardiovascular Problems/Disorders Respiratory History: Denies: Other Respiratory Problems/Disorders GI History: Denies: Other GI Disorders Musculoskeletal History: Reports: Hx Arthritis - right knee Sensory History: Denies: Hx Contacts or Glasses, Hx Hearing Aid Opthamlomology History: Denies: Hx Contacts or Glasses Neurological History: Denies: Other Neuro Impairments/Disorders - Surgical History Surgery Procedure, Year, and Place: 3 C-SECTIONS,1991, 1995, [place] [facility] [place] LEFT BREASTcyst excision OVARIAN TUMOR REMOVED, 2012, [facility]. tubal ligation Hx Anesthesia Reactions: Yes - 1995, diff breathing post op - Immunization History Immunizations Up to Date: Yes Infectious Disease History: No Infectious Disease History: Denies: Hx Clostridium Difficile, Hx Hepatitis, Hx Human Immunodeficiency Virus (HIV), Hx of Known/Suspected MRSA, Hx Shingles, Hx Tuberculosis, Hx Known/ Suspected VRE, Hx Known/Suspected VRSA, History Other Infectious Disease, Traveled Outside the [place] in Last 30 Days - Family History Known Family History: Positive: Hypertension Negative: Cardiac Disease, Diabetes - Social History Occupation: Unemployed Lives: With Family Alcohol Use: Weekly Alcohol Amount: 3 per week Hx Substance Use: No Substance Use Type: Reports: None Hx Tobacco Use: Yes Smoking Status (MU): Light Every Day Tobacco Smoker Type: Cigarettes Amount Used/How Often: 1/2 ppd for28 years Length of Time of Smoking/Using Tobacco: 20 yrs Have You Smoked in the Last Year: Yes Review of Systems Negative: Fever Positive: Other - Negative nasal congestion. Negative: Sore Throat Positive: Shortness Of Breath, Cough, Other - Positive wheezing and chest discomfort Negative: Edema All Other Systems Reviewed And Are Negative: Yes Physical Exam - Summary Physical Exam Summary: Appearance: Well appearing, no pain distress Skin: warm, dry, reflects adequate perfusion Head/face: normal Eyes: EOMI, MARIBETH ENT: mucous membranes moist, Clear discharge and inflamed nasal mucosa. Neck: supple, non-tender, No lymphadenopathy. Respiratory: breath sounds present, Diminished with expiratory wheeze. Cardiovascular: RRR, pulses symmetrical Abdomen: non-tender, soft Bowel Sounds: present Musculoskeletal: normal, strength/ROM intact Neuro: normal, sensory motor intact, A&Ox3 Triage Information Reviewed: Yes Vital Signs On Initial Exam: Initial Vitals Temp Pulse Resp BP Pulse Ox 98.3 F 95 22 145/92 95 08/10/18 15:52 08/10/18 15:52 08/10/18 15:52 08/10/18 15:52 08/10/18 15:52 Vital Signs Reviewed: Yes Diagnostics - Vital Signs Vital Signs Temp Pulse Resp BP Pulse Ox 08/10/18 15:52 98.3 F 95 22 145/92 95 - Laboratory Result Diagrams: 08/10/18 16:28 08/10/18 16:28 Lab Statement: Any lab studies that have been ordered have been reviewed, and results considered in the medical decision making process. - Radiology CXR Radiology Interpretation Completed By: Radiologist Summary of Radiographic Findings: CXR reveals, per radiologist, MILD PERIBRONCHIAL CUFFING AND QUESTIONABLE PARENCHYMAL DENSITY COULD BE DUE TO VIRAL PNEUMONIA AND/OR INFLAMMATORY LUNG DISEASE. IMAGE QUALITY IS LIMITED BY RECUMBENT POSITIONING DURING IMAGE ACQUISITION AND WHAT APPEARS TO BE AN INCOMPLETE INSPIRATORY EFFORT. ED physician has reviewed this radiology report. - EKG 1557 Cardiac Rate: NL EKG Rhythm: Sinus Rhythm - [address] Segment: Normal Summary of EKG Findings: An EKG taken at 1557 reveals normal sinus rhythm at 92 BPM with left axis deviation and normal ST Re-Evaluation - Re-Evaluation First Eval Re-Evaluation Time: 17:40 Change: Improved Comment: Patient reports her symptoms have slightly improved Course/Dx - Course Course Of Treatment: Smoker presents with diffuse wheezing and upper respiratory symptoms. X-ray is negative. She is hypoxic with PO2 of 62 on 4 L of nasal cannula. She had O2 sats of 87% at urgent care. She had breathing treatments there and several here with some improvement. She remains incapable of being titrated off oxygen at this point. X-ray was negative for infiltrate. Flu testing negative. Discussed the case with the hospitalist who will evaluate and admit. - Diagnoses Differential Diagnosis/HQI/PQRI: Positive: Asthma, Bronchitis, CHF, COPD Exacerbation, Pneumonia, Pneumothorax Provider Diagnoses: Acute bronchitis, Hypoxia - Physician Notifications Discussed Care of Patient With: Yunier Gill Time Discussed With Above Provider: 17:44 Instructed by Provider To: Other - Consult with Dr. Gill (hospitalist) at 1744. He agrees to admit patient for further evaluation. - Critical Care Time Critical Care Time: 30-74 min - CCT is EXCLUSIVE of separately billable procedures Discharge - Sign-Out/Discharge Documenting (check all that apply): Patient Departure - Admit to [facility] [place] - Discharge Plan Condition: Fair Disposition: ADMITTED TO [facility] Referrals: No Primary Care Phys,NOPCP [Primary Care Provider] - - Billing Disposition and Condition Condition: FAIR Disposition: Admitted to [facility] - Attestation Statements Document Initiated by Scribe: Yes Documenting Scribe: Macrina Rodríguez Provider For Whom Lacie is Documenting (Include Credential): Dr. Justin Espinoza MD Scribe Attestation: I, Macrina Rodríguez, scribed for Dr. Justin Espinoza MD on 08/10/18 at 1823. Scribe Documentation Reviewed: Yes Provider Attestation: The documentation as recorded by the Macrina mirza accurately reflects the service I personally performed and the decisions made by me, Dr. Justin Espinoza MD
[2018-08-10 16:46] LABS: ABS Basophils 0 10^3/ul (0-0.2); ABS Eosinophils 0.3 10^3/ul (0-0.6); ABS Lymphocytes 0.8 10^3/ul (1.0-4.8); ABS Monocytes 0.5 10^3/ul (0-0.8); ABS Neutrophils 10.1 10^3/ul (1.5-7.7); ABS Nucleated RBC 0 10^3/ul; Eosinophil % 2.3 % (0-6); Hematocrit 46 % (35-47); Hemoglobin 15.2 g/dl (12.0-16.0); Lymphocyte % 6.5 % (25-47); Mean Corpuscular HGB Conc 33 g/dl (31-36); Mean Corpuscular Hemoglobin 30 pg (27-31); Mean Corpuscular Volume 91 fL (80-97); Mean Platelet Volume 8.2 fL (7.4-10.4); Nucleated Red Blood Cells % 0.1; Platelet Count 263 10^3/ul (150-450); Red Blood Count 5.06 10^6/ul (4.00-5.40); Red Cell Distribution Width 14 % (10.5-15); White Blood Count 11.7 10^3/ul (3.5-10.8)
[2018-08-10 16:56] LABS: Albumin 4.6 g/dL (3.2-5.2); Calcium 9.5 mg/dL (8.6-10.3); Potassium 4.1 mmol/L (3.5-5.0); Total Bilirubin 0.5 mg/dL (0.2-1.0)
[2018-08-10 17:02] LABS: Albumin/Globulin Ratio 1.4 (1-3); BUN/Creatinine Ratio 17.6 (8-20); Globulin 3.2 g/dL (2-4); Total Protein 7.8 g/dL (6.4-8.9)
[2018-08-10] MEDS ORDERED: Azithromycin IV(*) 500 MG in NS 0.9% 250 ML* 250 ML IVPB ONE (17:42)
--- NOTE | 2018-08-10 17:44 | RAD ---
INDICATION: Shortness of breath. COMPARISON: Most recent comparison chest x-rays dated February 24, 2017 TECHNIQUE: PA and lateral views of the chest were obtained. FINDINGS: Image quality is limited as the patient was imaged in a seated/recumbent position. The heart and mediastinum are normal in size and contour. There is a mild degree of peribronchial cuffing better depicted on the lateral view chest x-ray. There is overall faint increased density at the lung bases which may simply be due to the poor inspiratory effort and/or recumbent positioning during image acquisition. There is no focal or lobar consolidation. Visualized bones are normal for the patient's age. There is no radiographic evidence of free air beneath the diaphragm IMPRESSION: MILD PERIBRONCHIAL CUFFING AND QUESTIONABLE PARENCHYMAL DENSITY COULD BE DUE TO VIRAL PNEUMONIA AND/OR INFLAMMATORY LUNG DISEASE. IMAGE QUALITY IS LIMITED BY RECUMBENT POSITIONING DURING IMAGE ACQUISITION AND WHAT APPEARS TO BE AN INCOMPLETE INSPIRATORY EFFORT.
[2018-08-10] MEDS: cefTRIAXone(*) 1 GM in NS 0.9% 50 ML* 50 ML IVPB SCH (20:54)
[2018-08-10] MEDS: Enoxaparin(*) 40 MG/0.4 ML SYR SUBCUT SCH (20:55)
[2018-08-10] MEDS: NS 0.9% 1000 ML* 1,000 ML IV SCH (20:55)
--- NOTE | 2018-08-10 23:32 | HP ---
ADMISSION HISTORY AND PHYSICAL: DATE OF ADMISSION: 08/10/18 CHIEF COMPLAINT: Shortness of breath. 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 This persisted and got worse last night and persistence of her signs and symptoms led to her presentation in the ED where she was found to be wheezing, in respiratory distress, tachypneic, and hypoxic. She had been given azithromycin, Solu-Medrol , and DuoNebs, as well as normal saline bolus. PAST MEDICAL HISTORY: Thoracic aortic aneurysm, hypertension. PAST SURGICAL HISTORY: Cholecystectomy, appendectomy, hysterectomy, , and cyst removal. CURRENT HOME MEDICATIONS: Losartan potassium 25 mg p.o. daily. ALLERGIES: NKDA. FAMILY HISTORY: Father with diabetes, hypertension, and stroke, as well as CKD in the 40s. SOCIAL HISTORY: Mentions that she smokes about 4 to 5 cigarettes per day for about 27 to 28 years. She mentions she drinks about 6 to 7 alcoholic drinks per week and only occasional and denies any illicit drug use. REVIEW OF SYSTEMS: Dry cough, diaphoresis, shortness of breath, and weakness as described above. Other than this, denies any fevers or chills, nausea, vomiting, chest pain, abdominal pain, diarrhea, constipation, pain and/or increased frequency on urination, myalgias or arthralgias, throat pain, or new skin lesions. The rest of the 14-point review of systems is otherwise unremarkable. PHYSICAL EXAMINATION GENERAL APPEARANCE: The patient is awake, alert, and oriented, appears ill, obese. VITAL SIGNS: Revealed the most recent vital signs of record with blood pressure of 144/81; 94 beats per minute heart rate; saturating at 93% at 4 L nasal cannula; previously her heart rate was 109 and 110 and on my exam the patient was in the 110s; previously her respiratory rate was in the 30s to mid 20s. HEENT: Normocephalic, atraumatic. PERRLA. Extraocular muscles intact. NECK: Soft, supple with no cervical lymphadenopathy. Difficult to assess JVD. CHEST: Positive crackles on the upper and middle areas of the chest with wheezing throughout all lung rosales with poor air entry at bases. ABDOMEN: Soft, nondistended, nontender. Normoactive bowel sounds x4 quadrants. EXTREMITIES: No cyanosis, clubbing, or edema. PSYCHIATRIC: No active psychosis, depression, suicidal or homicidal ideation. SKIN: Warm to touch. DIAGNOSTIC STUDIES/LAB DATA: Most recent and pertinent laboratories include CBC with a WBC of 11.7, H and H of 15.2 and 46, platelets of 263. ABG shows 7.36 pH, 46 pCO2, pO2 of 62, saturation of 93.9%. CMPs were all found to be normal. She is influenza A and B negative. A chest x-ray was done, which shows some mild peribronchial cuffing with questionable parenchymal density that could be due to viral pneumonia and/or inflammatory lung disease, although the image quality is limited by recumbent positioning during image acquisition. EKG shows sinus rhythm, 92 beats per minute, no ST segment changes. ASSESSMENT AND PLAN: The patient is a 42-year-old lady with history of thoracic aortic aneurysm, hypertension, admitted for community-acquired pneumonia. 1. Community-acquired pneumonia. We will continue Rocephin and azithromycin and despite being only one, she does have evidence of peribronchial cuffing and significant wheezing and hypoxia on presentation and I think that she would benefit from a steroid rapid taper at this point due to bronchial hyperactivity and we will nebulize her with DuoNebs with p.r.n. albuterol as ordered. She claims that she does not have any previous history of chronic obstructive pulmonary disease despite her smoking, although she only smokes about 4 to 5 cigarettes per day for about 28 years. She also does not claim to have any form of asthma. We will check Legionella urine antigen and Strep pneumo as well as blood cultures. Antibiotics have been ordered to start after the blood draws have been drawn. 2. Sepsis due to CAP: Please see above discussion; pt will be on IVFs as ordered in addition to antibiotics prescribed. 3. Hypertension. Continue losartan. 4. DVT prophylaxis: We will place the patient on Lovenox. 5. Disposition: As above. [id number]/[facility] #: [id number] [facility] NETWORKPaola
[2018-08-11] MEDS: Albuterol/Ipratropium NEB.SOL* Albuterol 2.5 MG/Ipratropium 0.5 MG 3 ML INH SCH ×8 (00:10→23:50)
[2018-08-11] MEDS ORDERED: LORazepam TAB(*) 0.5 MG PO ONE (04:03)
[2018-08-11] MEDS: NS 0.9% 1000 ML* 1,000 ML IV SCH (05:14)
[2018-08-11] MEDS: methylPREDNISolone SOD 40 MG* 1 ML VIAL IV SCH ×2 (05:15→18:00)
[2018-08-11] MEDS: Losartan TAB* 25 MG PO SCH (09:15)
[2018-08-11] MEDS ORDERED: Nicotine Inhaler* 10 MG AMP INH PRN (10:39)
[2018-08-11] MEDS: hydrOXYzine HCL TAB* 50 MG PO PRN ×2 (11:41→20:30)
[2018-08-11] MEDS: Benzonatate CAP* 100 MG PO PRN ×2 (11:41→18:00)
[2018-08-11] MEDS: Nicotine PATCH 7 MG/24 HR* PATCH TRANSDERM SCH (11:42)
[2018-08-11 11:44] LABS: ABS Basophils 0.1 10^3/ul (0-0.2); ABS Eosinophils 0 10^3/ul (0-0.6); ABS Lymphocytes 0.6 10^3/ul (1.0-4.8); ABS Monocytes 0.4 10^3/ul (0-0.8); ABS Neutrophils 12.6 10^3/ul (1.5-7.7); ABS Nucleated RBC 0 10^3/ul; Eosinophil % 0.1 % (0-6); Hematocrit 39 % (35-47); Hemoglobin 12.9 g/dl (12.0-16.0); Lymphocyte % 4.3 % (25-47); Mean Corpuscular HGB Conc 33 g/dl (31-36); Mean Corpuscular Hemoglobin 30 pg (27-31); Mean Corpuscular Volume 90 fL (80-97); Mean Platelet Volume 7.9 fL (7.4-10.4); Nucleated Red Blood Cells % 0; Platelet Count 298 10^3/ul (150-450); Red Cell Distribution Width 14 % (10.5-15); White Blood Count 13.8 10^3/ul (3.5-10.8)
[2018-08-11 12:09] LABS: Albumin 3.8 g/dL (3.2-5.2); Albumin/Globulin Ratio 1.4 (1-3); BUN/Creatinine Ratio 14.9 (8-20); Globulin 2.8 g/dL (2-4); Phosphorus 2.8 mg/dL (2.5-5.0); Total Bilirubin 0.3 mg/dL (0.2-1.0); Total Protein 6.6 g/dL (6.4-8.9)
--- NOTE | 2018-08-11 14:21 | PN ---
Subjective Date of Service: 08/11/18 Interval History: Pt seen and examined. Meds and labs reviewed. CC: Anxiety and nicotine cravings, cough, now better able to expectorate ROS: Denied LONG/dizziness, F/C, N/V, CP, SOB, increased, abd pain, diarrhea, constipation, dysuria, myalgias, arthralgias, throat pain, and new skin lesions. The rest of the 14 point ROS are unremarkable. PHYSICAL EXAM: GEN APPEARANCE: Awake, not in acute distress HEENT: NC/AT, PERRLA, moist oral mucosa, (-) throat erythema NECK: Soft, supple, (-) cervical LAD, (-)JVD HEART: S1S2 WNL, RRR, No MRG CHEST: Occasional squeaks, GAE, No W/R/R ABD: Soft, ND/NT, NABS 4x Q EXT: No C/C/E SKIN: Warm to touch PSYCH: No active psychosis, hallucinations, depression, SI/HI Objective Active Medications: Albuterol/Ipratropium (Duoneb (Albuterol 2.5 Mg/Ipratropium 0.5 Mg)) 1 neb INH [id number] AWAKE [facility] Last Admin: 08/11/18 11:26 Dose: 1 neb Benzonatate (Tessalon Cap*) 100 mg PO Q6H PRN PRN Reason: COUGH Last Admin: 08/11/18 11:41 Dose: 100 mg Enoxaparin Sodium (Lovenox(*)) 40 mg SUBCUT Q24H [facility] Last Admin: 08/10/18 20:55 Dose: 40 mg Guaifenesin/Dextromethorphan (Robitussin Dm*) 10 ml PO TID [facility] Hydroxyzine HCl (Atarax Tab*) 50 mg PO Q6H PRN PRN Reason: ANXIETY Last Admin: 08/11/18 11:41 Dose: 50 mg Ceftriaxone Sodium 1 gm/ (Sodium Chloride) 50 mls @ 200 mls/hr IVPB Q24H [facility] Last Admin: 08/10/18 20:54 Dose: 200 mls/hr Azithromycin 500 mg/ Sodium (Chloride) 250 mls @ 250 mls/hr IVPB Q24H [facility] Sodium Chloride (Ns 0.9% 1000 Ml*) 1,000 mls @ 125 mls/hr IV PER RATE [facility] Stop: 08/12/18 02:59 Last Admin: 08/11/18 05:14 Dose: 125 mls/hr Losartan Potassium (Cozaar Tab*) 25 mg PO DAILY [facility] Last Admin: 08/11/18 09:15 Dose: 25 mg Methylprednisolone Sodium Succinate (Solu-Medrol 40 Mg) 40 mg IV Q12H [facility] Last Admin: 08/11/18 05:15 Dose: 40 mg Nicotine (Nicotine Patch 7 Mg/24 Hr*) 1 patch TRANSDERM DAILY [facility] Last Admin: 08/11/18 11:42 Dose: 1 patch Nicotine (Nicotine Inhaler*) 10 mg INH Q2H PRN PRN Reason: CRAVING Pharmacy Profile Note (Nicotine Patch Removal Note*) 1 note PATCH OFF 2099 [facility] Vital Signs - 8 hr 08/11/18 08/11/18 08/11/18 07:15 07:43 08:28 Temperature Pulse Rate 111 74 Respiratory 20 17 Rate Blood Pressure (mmHg) O2 Sat by Pulse 96 97 Oximetry 08/11/18 08/11/18 08/11/18 08:30 11:29 11:50 Temperature 98.1 F 97.9 F Pulse Rate 78 85 100 Respiratory 20 88 20 Rate Blood Pressure 151/84 132/77 (mmHg) O2 Sat by Pulse 97 94 90 Oximetry Oxygen Devices in Use Now: Nasal Cannula Result Diagrams: 08/11/18 11:38 08/11/18 11:38 Microbiology and Other Data: Microbiology 08/11/18 09:41 Legionella Urinary Antigen - Final Urine Negative Legionella Antigen Streptococcus pneumoniae Ag Screen - Final Negative S. pneumo Antigen 08/10/18 16:12 Influenza Types A,B Antigen - Final Nasal Specimen received for Influenza A/B Molecular testing Assess/Plan/Problems-Billing Assessment: - Patient Problems (1) CAP (community acquired pneumonia) Current Visit: Yes Status: Acute Code(s): J18.9 - PNEUMONIA, UNSPECIFIED ORGANISM SNOMED Code(s): 477384093 Comment: -Continue Rocephin and Azithromycin -Pt appears to be improving and other than anxiety and nicotine cravings, feels somewhat better today than yesterday -Continue nebulizations as ordered -Still on O2 (2) Sepsis Current Visit: Yes Status: Acute Comment: -Improving -Please see above discussion (3) Cough Current Visit: Yes Status: Acute Code(s): R05 - COUGH SNOMED Code(s): 79514583 Comment: -Will place on Robitussin DM and Tessalon perles as ordered (4) Anxiety Current Visit: Yes Status: Acute Code(s): F41.9 - ANXIETY DISORDER, UNSPECIFIED SNOMED Code(s): 50830324 Comment: -Placed pt on Hydroxyzine PRN (5) HTN (hypertension) Current Visit: Yes Status: Acute Code(s): I10 - ESSENTIAL (PRIMARY) HYPERTENSION SNOMED Code(s): 78991006 Comment: -Continue Losartan (6) DVT prophylaxis Current Visit: Yes Status: Acute Code(s): DTZ8655 - SNOMED Code(s): 503014484 Comment: -Continue Lovenox Status and Disposition: -For possible D/C in 1-2 days -Awaiting culture data -For ambulatory saturation test in AM
[2018-08-11] MEDS: GuaiFENesin DM* 5 ML UDC PO SCH ×2 (16:13→20:27)
[2018-08-11] MEDS ORDERED: Azithromycin IV(*) 500 MG in NS 0.9% 250 ML* 250 ML IVPB SCH (18:00)
[2018-08-11] MEDS: cefTRIAXone(*) 1 GM in NS 0.9% 50 ML* 50 ML IVPB SCH (18:00)
[2018-08-11] MEDS: Enoxaparin(*) 40 MG/0.4 ML SYR SUBCUT SCH (20:27)
[2018-08-11] MEDS ORDERED: Nicotine Patch Removal NOTE PATCH OFF SCH (21:00)
[2018-08-12] MEDS: Albuterol/Ipratropium NEB.SOL* Albuterol 2.5 MG/Ipratropium 0.5 MG 3 ML INH SCH ×4 (03:19→16:02)
[2018-08-12] MEDS: methylPREDNISolone SOD 40 MG* 1 ML VIAL IV SCH (05:53)
[2018-08-12] MEDS: Losartan TAB* 25 MG PO SCH (07:34)
[2018-08-12] MEDS: GuaiFENesin DM* 5 ML UDC PO SCH ×2 (07:34→14:56)
[2018-08-12] MEDS: Nicotine PATCH 7 MG/24 HR* PATCH TRANSDERM SCH (07:35)
[2018-08-12 10:04] LABS: ABS Basophils 0 10^3/ul (0-0.2); ABS Eosinophils 0 10^3/ul (0-0.6); ABS Lymphocytes 0.7 10^3/ul (1.0-4.8); ABS Monocytes 0.5 10^3/ul (0-0.8); ABS Neutrophils 10.1 10^3/ul (1.5-7.7); ABS Nucleated RBC 0 10^3/ul; Eosinophil % 0.1 % (0-6); Hematocrit 38 % (35-47); Hemoglobin 12.8 g/dl (12.0-16.0); Lymphocyte % 5.8 % (25-47); Mean Corpuscular HGB Conc 33 g/dl (31-36); Mean Corpuscular Hemoglobin 30 pg (27-31); Mean Corpuscular Volume 91 fL (80-97); Mean Platelet Volume 7.9 fL (7.4-10.4); Nucleated Red Blood Cells % 0; Platelet Count 307 10^3/ul (150-450); Red Blood Count 4.21 10^6/ul (4.00-5.40); Red Cell Distribution Width 14 % (10.5-15); White Blood Count 11.2 10^3/ul (3.5-10.8)
[2018-08-12 10:24] LABS: Albumin 3.7 g/dL (3.2-5.2); Albumin/Globulin Ratio 1.3 (1-3); BUN/Creatinine Ratio 24.1 (8-20); EGFR Non-African American 112.9 (>60); Globulin 2.8 g/dL (2-4); Phosphorus 2.1 mg/dL (2.5-5.0); Potassium 4.2 mmol/L (3.5-5.0); Total Bilirubin 0.3 mg/dL (0.2-1.0); Total Protein 6.5 g/dL (6.4-8.9)
[2018-08-12] MEDS: hydrOXYzine HCL TAB* 50 MG PO PRN (10:35)
[2018-08-12 11:48] VITALS: BP 133/86
[2018-08-12] MEDS ORDERED: Mouth Piece, Nicotine* 1 EACH CARTRIDGE ONE (14:52)
--- NOTE | 2018-08-13 06:13 | DS ---
DISCHARGE SUMMARY: ADDENDUM: DISCHARGE MEDICATIONS: 1. Benzonatate capsule 100 mg p.o. q.6 p.r.n. for breakthrough cough. 2. Robitussin DM 10 mL p.o. q.6 p.r.n. for cough, preferred medication to control cough. 3. Hydroxyzine 50 mg p.o. q.6 p.r.n. for anxiety. 4. Losartan 25 mg p.o. daily. 5. Nicotine inhaler 10 mg inhalation q.2 hours p.r.n. 6. Nicotine patch 7 mg per 24 hour 1 patch daily. 7. Azithromycin 250 mg p.o. daily, 3 tabs dispensed with 0 refill. 8. Cefpodoxime 200 mg p.o. q.12 for 8 days, 16 tabs, dispensed with 0 refill. 9. Floranex 1 tab p.o. daily for 12 days. 10. Prednisone rapid taper. Also, please add to my previous dictation in the last paragraph in my instruction to the patient in the HPI/hospital course, the patient was advised to stop smoking. [id number]/[facility] #: [id number] LYNDA
--- NOTE | 2018-08-13 07:20 | DS ---
ADDENDUM NOW INCLUDED ON THIS REPORT CC: Dr. Espinoza * DISCHARGE SUMMARY: DATE OF ADMISSION: DATE OF DISCHARGE: 08/12/18 DISCHARGE DIAGNOSES: Are as follows: 1. Community-acquired pneumonia with sepsis, sepsis resolved. 2. Cough, secondary to above, improved. 3. Anxiety, improved. 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 She also developed some weakness, diaphoresis, and dry cough and these symptoms then persisted and got worse the following evening, which led her to present to the emergency room, where she was diagnosed to have pneumonia with mild sepsis. She was placed on Rocephin and azithromycin as well as steroids despite having acute SOFA of 1 given she had evidence of peribronchial cuffing as well as significant wheezing and hypoxia on presentation. She has done well during her hospital stay and her blood culture has been negative for 1 day during her hospitalization prior to her discharge and she was found to be negative for Legionella antigen and Strep pneumoniae antigen. She was also ruled out for influenza with a negative screen. Prior to her discharge, she had an ambulatory saturation test done, which suggests that she will need oxygen on ambulation that is around 3 L. The patient had been advised to follow up and recall her PCP within 3 days post discharge and she was advised that if her symptoms resume or develop new ones or feel unwell for any reason, to call her PCP first; and if her PCP cannot entertain her due to scheduling issues alone, to call [facility] if the issue is considered nonemergent. She was advised to call my office regarding any questions, concerns, or further clarifications regarding her discharge plans and/or prescriptions and to take her medications as prescribed. REVIEW OF SYSTEMS: She currently denies any current headaches, dizziness, fevers, chills, nausea, vomiting, chest pain, shortness of breath, which has significantly improved from her presentation. Denies any abdominal pain, diarrhea, constipation, pain and/or increased frequency in urination, myalgias, arthralgias, throat pain, or new skin lesions. The rest of the 14-point review of systems are otherwise unremarkable. PHYSICAL EXAMINATION: Shows the most recent vital signs of records, blood pressure of 133/86, 97.5 degrees Fahrenheit, 80 beats per minute heart rate, 24 per minute respiratory rate, saturating at 92% on room air. However, she does need oxygen on ambulation as discussed. HEENT: Normocephalic, atraumatic. PERRLA. Extraocular muscles intact. Negative for icterus. Moist oral mucosa. Negative throat erythema. Neck is soft, supple, with no cervical lymphadenopathy, no JVD. Heart: S1, S2 within normal limits. Regular rate and rhythm. No murmurs, rubs, or gallops. Chest: Clear to auscultation bilaterally. Good air entry. No wheezes, rales, or rhonchi. Abdomen is soft, nondistended, nontender. Normoactive bowel sounds x4 quadrants. Extremities: No cyanosis, clubbing, or edema. Psychiatric: No active psychosis, depression, suicidal or homicidal ideations. Skin is warm to touch. TIME SPENT: The total time spent evaluating the patient, reviewing pertinent data, and appropriate documentation is greater than 30 minutes. ADDENDUM: DISCHARGE MEDICATIONS: 1. Benzonatate capsule 100 mg p.o. q.6 p.r.n. for breakthrough cough. 2. Robitussin DM 10 mL p.o. q.6 p.r.n. for cough, preferred medication to control cough. 3. Hydroxyzine 50 mg p.o. q.6 p.r.n. for anxiety. 4. Losartan 25 mg p.o. daily. 5. Nicotine inhaler 10 mg inhalation q.2 hours p.r.n. 6. Nicotine patch 7 mg per 24 hour 1 patch daily. 7. Azithromycin 250 mg p.o. daily, 3 tabs dispensed with 0 refill. 8. Cefpodoxime 200 mg p.o. q.12 for 8 days, 16 tabs, dispensed with 0 refill. 9. Floranex 1 tab p.o. daily for 12 days. 10. Prednisone rapid taper. Also, please add to my previous dictation in the last paragraph in my instruction to the patient in the HPI/hospital course, the patient was advised to stop smoking. [id number]/[facility] #: [id number] A- [id number]/[facility] #: [id number] LYNDA
== END 2018-08-12 17:17 | disposition home or self-care (01) ==
LOC: ED 15:50 → MEDTELE 18:17
PROVIDERS: ADMIT Student in an Organized Health Care Education/Training Program; ATTEND Student in an Organized Health Care Education/Training Program
DX: J18.9 Pneumonia, unspecified organism (principal); A41.9 Sepsis, unspecified organism; R05 Cough; F41.9 Anxiety disorder, unspecified; I10 Essential (primary) hypertension; Z86.79 Personal history of other diseases of the circulatory system; R09.02 Hypoxemia; J44.9 Chronic obstructive pulmonary disease, unspecified; R42 Dizziness and giddiness; R61 Generalized hyperhidrosis; F17.210 Nicotine dependence, cigarettes, uncomplicated; R06.03 Acute respiratory distress; R06.02 Shortness of breath
CPT/HCPCS: 36415; 71046; 80053; 82803; 83605; 83735; 84100; 84484; 85025; 85379; 87040; 87899; 93005; 94640; 96365; 96366; 96367; 96372; 96375; 99283; 99406; A9270-GY; G0378; J0456; J0696; J1650; J1885; J2920; J2930